=== PATIENT | female | born 2000 | race Caucasian/White ===

== ENCOUNTER 2018-04-09 21:25 | Emergency (ER) | payer SELFPAY ==
--- NOTE | 2018-04-09 22:12 | RADIOLOGY REPORT (SQ) ---
EXAM DESCRIPTION: XR ANKLE 3 OR MORE VIEWS COMPLETED DATE/TME: 04/09/2018 00:00 CLINICAL HISTORY: 17 years, Female, Twisted R ankle/ Painful / swollen Findings: Bony alignment is anatomic. No fracture or dislocation. Mild diffuse soft tissue swelling. Ankle mortise is not widened. IMPRESSION: No fracture.
--- NOTE | 2018-04-09 23:53 | ER Document Report ---
HPI - HPI Patient complains to provider of: right ankle injury Time Seen by Provider: 04/09/18 23:39 Pain Level: 4 Context: Patient is a 17-year-old female that comes to the emergency department for chief complaint of right ankle injury. She states that she was stepping down from a step, she stepped wrong and externally inverted her ankle causing swelling and pain. Denies any other injuries. LMP within the past month. Past Medical History - General Information source: Patient - Social History Smoking Status: Never Smoker Frequency of alcohol use: None Drug Abuse: None Lives with: Family Family History: Reviewed & Not Pertinent - Immunizations Immunizations up to date: Yes Hx Diphtheria, Pertussis, Tetanus Vaccination: Yes Vertical Provider Document - CONSTITUTIONAL General Appearance: WD/WN, No Apparent Distress - INFECTION CONTROL TRAVEL OUTSIDE OF THE [place] IN LAST 30 DAYS: No - HEENT HEENT: Atraumatic, Normal ENT Exam, Normocephalic - NECK Neck: Normal Inspection - RESPIRATORY Respiratory: Breath Sounds Normal, No Respiratory Distress - CARDIOVASCULAR Cardiovascular: Regular Rate, Regular Rhythm - GI/ABDOMEN Gastrointestinal: Abdomen Soft, Abdomen Non-Tender - BACK Back: Normal Inspection - MUSCULOSKELETAL/EXTREMETIES Musculoskeletal/Extremeties: Tender - Tender over the right lateral malleolus with some mild soft tissue swelling. Normal knee, leg exam, normal foot exam otherwise, normal distal neurovascular exam Course - Vital Signs Vital signs: Temp Pulse Resp BP Pulse Ox 97.3 F 97 H 16 120/60 97 04/09/18 22:00 04/09/18 22:00 04/09/18 22:00 04/09/18 22:00 04/09/18 22:00 - Diagnostic Test Radiology reviewed: Image reviewed, Reports reviewed Procedures - Immobilization right ankle Immobilizer type: Cock-up Performed by: PCT Post-Proc Neuro Vasc Exam: Normal Alignment checked and good: Yes Discharge - Discharge Clinical Impression: Right ankle injury Condition: Stable Disposition: HOME, SELF-CARE Instructions: Ankle Stirrup Splint ([facility]), Use of Crutches ([facility]) Additional Instructions: Your x-ray does not show a fracture or concerning abnormality. Your examination shows soft tissue swelling consistent with probable ATF ligament sprain. Recommendation is to elevate, ice 3-4 times a day, take anti- inflammatory as prescribed, use crutches and splint at least for the next 2-3 days. Resume normal activity after swelling and pain resolves. Follow-up with primary care. Return for any concerning symptoms including severe swelling or pain. Prescriptions: Naproxen [Naprosyn 375 Mg Tablet] 375 mg PO BID #20 tablet
[2018-04-10 01:06] VITALS: BP 120/74
== END 2018-04-10 01:08 | disposition home or self-care (01) ==
LOC: ER 21:25
PROC: 2W3QX1Z Immobilization of Right Lower Leg using Splint (ICD-10-PCS; principal; 2018-04-09)
DX: S99.911A Unspecified injury of right ankle, initial encounter (principal); W10.9XXA Fall (on) (from) unspecified stairs and steps, initial encounter
CPT/HCPCS: 99283; L4350